=== PATIENT | male | born 1980 | race Two or more races ===

== ENCOUNTER 2022-01-17 01:41 | Emergency (ER) | payer BC ==
[~2022-01-17] VITALS: Ht 175.3 cm; Wt 84.0 kg
[2022-01-17 01:58] VITALS: BP 169/103
[2022-01-17 02:56] LABS: Albumin 4.1 g/dL (3.4-5.0); Calcium 9.2 mg/dL (8.5-10.1)
[2022-01-17 02:58] LABS: BUN/Creatinine Ratio 7.8
[2022-01-17 03:14] LABS: Bilirubin, Total 0.9 mg/dL (0.2-1.0); Total Protein 7.8 g/dL (6.4-8.2)
[2022-01-17 03:47] LABS: Basophils # (auto) 0.1 10 ^3/uL (0-0.2); Basophils % (auto) 1.1 % (0.0-2.0); Eosinophils # (auto) 0 10 ^3/uL (0-0.8); Eosinophils % (auto) 0.2 % (0.0-7.0); Hematocrit 46.9 % (41.0-53.0); Hemoglobin 16.6 g/dL (13.5-17.5); Lymphocytes # (auto) 0.8 10 ^3/uL (0.4-5.4); Lymphocytes % (auto) 14.1 % (10.0-50.0); Mean Corpuscular Hemoglobin 32.3 pg (28.0-32.0); Mean Corpuscular Hgb Conc. 35.5 g/dL (32.0-36.0); Mean Corpuscular Volume 91.2 fL (80.0-100.0); Monocytes # (auto) 0.7 10 ^3/uL (0-1.3); Monocytes % (auto) 12.2 % (0.0-12.0); Neutrophils # (auto) 4.1 10 ^3/uL (1.6-8.6); Neutrophils % (auto) 72.4 % (37.0-80.0); Nucleated Red Blood Cells % 0.1 %; Red Blood Cells 5.14 10^6/uL (4.5-5.90); Red Cell Distribution Width 12.8 % (11.8-14.3); White Blood Cell 5.6 10^3/uL (4.4-10.8)
[2022-01-17 07:56] LABS: Urine Bacteria NONE SEEN /hpf (None Seen); Urine WBC 2 /hpf (0 - 3)
[2022-01-17 08:13] LABS: Urine Specific Gravity 1.015 (1.001-1.035)
[2022-01-17 08:14] LABS: Urine Blood Trace /uL (Negative)
== END 2022-01-17 09:15 | disposition left against medical advice (07) ==
LOC: ER 01:41
DX: R11.2 Nausea with vomiting, unspecified (principal); R10.9 Unspecified abdominal pain; R04.0 Epistaxis; Z53.21 Procedure and treatment not carried out due to patient leaving prior to being seen by health care provider
CPT/HCPCS: 36415; 74176; 80053; 81001; 85025